=== PATIENT | female | born 1965 | race Caucasian/White ===

== ENCOUNTER 2025-01-10 01:52 | Emergency (ER) | payer MEDICAID, SELFPAY ==
[2025-01-10 01:53] VITALS: BP 154/93; PULSE 160; RESP 19; TEMP 36.6; O2SAT 99; BMI 34.0
[2025-01-10 02:16] LABS: Absolute Lymphocyte Count 3.08 X10^3/uL (0.83-4.51); Absolute Neutrophil Count 4.4 X10^3/uL (2.0-7.7); Basophil# 0.09 X10^3/uL; Eosinophil# 0.27 X10^3/uL; Hematocrit 37.1 % (37-47); Hemoglobin 12.5 g/dL (12.0-15.0); Lymphocyte # 3.08 X10^3/ul (0.83-4.51); Lymphocyte % 34.6 % (19-41); Mean Corp Hgb Conc 33.7 g/dL (32-36); Mean Corpuscular Hgb 31.8 pg (27.0-32.0); Mean Corpuscular Volume 94.4 fL (81-99); Mean Platelet Vol. 9.8 fl (6.2-12.0); Monocyte# 1.02 X10^3/uL; Monocyte% 11.4 % (0-10); NRBC Flagged by Analyzer 0 % (0-5); Neutrophil # 4.41 X10^3/uL (2.7-7.7); Neutrophil % 49.6 % (47-70); Platelet Count 445 K/mm3 (150-450); RBC Distribution Width CV 13.1 % (11.6-14.6); RBC Distribution Width SD 45.7 fl (35.1-43.9); Red Blood Count 3.93 M/mm3 (4.2-5.4); White Blood Count 8.9 K/mm3 (4.4-11.0)
[2025-01-10] MEDS: dilTIAZem 25 MG/5 ML Vial 20 MG IV BOLUS ×2 (02:16→03:16)
[2025-01-10] MEDS: 0.9% Normal Saline (1000mL) 1,000 ML 999 ML IV (02:16)
[2025-01-10 02:32] LABS: International Normalized Ratio 0.9; Prothrombin Time (Protime)PT. 12.7 SECONDS (11.7-14.9)
[2025-01-10 02:33] LABS: Partial Thromboplast Time 25.1 Seconds (24.1-36.2)
[2025-01-10 02:53] VITALS: BP 148/94; PULSE 126; RESP 18; O2SAT 98
[2025-01-10 03:02] LABS: Anion Gap 13 (5-15); BUN 11 mg/dL (4-19); BUN/Creat Ratio 13.4 RATIO (10-20); Calcium,Total 9.5 mg/dL (7.6-11.0); Carbon Dioxide 19.7 mmol/L (21.0-32.0); Chloride 106 mmol/L (98-108); EST Glomerular Filtration Rate 84 (>60); Estimated Creatinine Clearance 74.35 ml/min (50-250); Glucose 120 mg/dL (70-99); Magnesium 2.3 mg/dL (1.5-2.2); Potassium 3.9 mmol/L (3.3-5.1); Sodium Level 139 mmol/L (133-145)
[2025-01-10 03:27] VITALS: BP 116/80; PULSE 102; RESP 18; O2SAT 99
[2025-01-10] MEDS: Metoprolol Tartrate 25 MG Tablet PO (03:47)
[2025-01-10 04:00] VITALS: BP 115/76; PULSE 101; RESP 19; O2SAT 98
--- NOTE | 2025-01-10 04:27 | EX.ED.DYSGE1 ---
HPI History of Present Illness Chief Complaint: Palpitations Informant: patient Narrative Narrative: Patient is a 59-year-old female who reports a past medical history of coronary artery disease and hyperlipidemia. She states she had a heart cath a few weeks ago that was reportedly clean. She states she lives in [place] and is in town visiting her brother who has metastatic lung cancer. She states she went to bed feeling normal and then awoke from sleep with sensation of her heart racing. She states she does not have a history of an abnormal heart rhythm and with the persistent palpitations presents for evaluation. Patient does admit to drinking alcohol on average 3 times a week. She denies any history of illicit drug use or excessive stimulant use [facility] Medical History (Updated 01/10/25 @ 05:[address] Devante Shah, DO) Drinks alcohol CAD (coronary artery disease) Home Medications ?Medication ?Instructions ?Recorded ?Last Taken ?Type apixaban 5 mg tablet (Eliquis) 5 mg PO BID 30 days #60 tabs 01/10/25 Unknown Rx aspirin 81 mg capsule 81 mg PO DAILY 01/10/25 Unknown History metoprolol tartrate 25 mg tablet 25 mg PO BID 30 days #60 tabs 01/10/25 Unknown Rx nitroglycerin 0.4 mg sublingual 0.4 mg sublingual PRN PRN angina 01/10/25 Unknown History tablet (Nitrostat) rosuvastatin 20 mg tablet 20 mg PO DAILY 01/10/25 Unknown History Allergy/AdvReac Type Severity Reaction Status Date / Time latex AdvReac Rash Verified 01/10/25 01:54 Surgical History (Updated 01/10/25 @ 01:55 by Meg Patel) History of Social History (Updated 01/10/25 @ 02:07 by Meg Patel) Smoking Status: Current every day smoker tobacco type: cigarettes alcohol intake: current ROS ROS ED Constitutional Constitutional ED: Denies chills or fever(s) Eyes Eyes: Denies blurry vision or change in vision ENT ENT ED: Denies sore throat Cardiovascular Cardiovascular: Reports palpitations and racing heartbeat; Denies chest pain Respiratory/Chest Respiratory/Chest: Denies cough or dyspnea Gastrointestinal Gastrointestinal: Denies abdominal pain, diarrhea, nausea or vomiting Genitourinary Genitourinary ED: Denies dysuria Musculoskeletal Musculoskeletal: Denies back pain or myalgias Integumentary Denies rash Neurologic Neurologic: Denies headache(s) Hematologic/Lymphatic Hematologic/Lymphatic: Denies easy bleeding or easy bruising EXAM Physical Exam Const Vital Signs: 01/10/25 01:53 01/10/25 01:53 01/10/25 02:53 Temperature 98 F Temperature Source Temporal Pulse Rate 160 H 126 H Respiratory Rate 19 H 18 Respiratory Effort Normal Non-Labored Blood Pressure 154/93 H 148/94 H Blood Pressure Mean 113 112 Pulse Ox 99 98 Oxygen Delivery Method Room Air Room Air 01/10/25 03:27 01/10/25 04:00 01/10/25 04:31 Temperature 98.2 F Temperature Source Pulse Rate 102 H 101 H 100 Respiratory Rate 18 19 H 18 Respiratory Effort Blood Pressure 116/80 115/76 115/76 Blood Pressure Mean 92 89 89 Pulse Ox 99 98 97 Oxygen Delivery Method Room Air Room Air Positive well nourished and well developed General Appearance ED: well developed; Negative for pallor HEENT HEENT Narrative: Normocephalic atraumatic Eyes PERRL and EOMs intact bilaterally General Eye ED: Negative for scleral icterus Neck supple and no JVD Neck Narrative: No nuchal rigidity or meningeal signs Chest Wall palpation of chest normal Chest Narrative: No bony deformity or subcutaneous emphysema noted Resp normal respiratory effort and clear to auscultation bilaterally Cardio Rate: tachycardic and other Other Details: Irregularly irregular rhythm with tachycardic rate consistent with atrial fibrillation with rapid ventricular response GI normal to inspection, nondistended, normoactive bowel sounds, non-tender, non-distended and no masses Auscultation: normoactive bowel sounds Palpation: soft Extremity normal to inspection Extremity Narrative: No asymmetric edema no pitting edema negative Homans' sign bilaterally Neuro oriented x3, CN's II-XII intact bilaterally and no sensory deficits noted Sensorium / Orientation: alert Motor Exam: strength 5/5 throughout Psych mental status grossly normal Skin no rashes or lesions noted General Skin Exam: Negative for jaundice or pallor MDM MDM MDM Narrative Medical decision making narrative: Patient arrived to the ER hypertensive and in A-fib with RVR. She states she does not have a past medical history of this. In order to check for potential reversible causes of A-fib such as anemia acute kidney injury or electrolyte abnormality or thyroid disorder basic blood work was obtained. Labs revealed no clinically significant findings. After receiving Cardizem her heart rate improved to approximately 100. In order to ensure that the once the IV Cardizem was metabolized that her heart rate would stay within her normal range she was started on metoprolol tartrate. We did discuss potential cardioversion but the patient ultimately is unsure of how long she has been in atrial fibrillation and therefore there is a higher risk for potential stroke with the procedure and therefore we elected to not perform at this time and simply control her rate and put her on anticoagulation. As the patient is from [place] she states she will follow-up with her normal cardiology team when she returns home. At this time her rate is within her normal range she is not anticoagulated on Eliquis and will continue metoprolol to keep her heart rate under control and therefore she is safe for discharge and can follow-up as an outpatient when she returns home History & Record Review Discussion w/independent historian: Patient Lab Data Attestation: I reviewed the patient's lab results. Labs: Laboratory Results - last 24 hr 01/10/25 02:00 WBC 8.9 RBC 3.93 L Hgb 12.5 Hct 37.1 MCV 94.4 MCH 31.8 MCHC 33.7 RDW Std Deviation 45.7 H RDW Coeff of Ashok 13.1 Plt Count 445 MPV 9.8 Immature Gran % (Auto) 0.400 Neut % (Auto) 49.6 Lymph % (Auto) 34.6 [place] % (Auto) 11.4 H Eos % (Auto) 3.0 Baso % (Auto) 1.0 Absolute Neuts (auto) 4.4 Absolute Lymphs (auto) 3.08 Nucleated RBC % 0 PT 12.7 INR 0.9 APTT 25.1 Sodium 139 Potassium 3.9 Chloride 106 Carbon Dioxide 19.7 L Anion Gap 13 BUN 11 Creatinine 0.80 Estim Creat Clear Calc 74.35 Est GFR (MDRD) Non-Af 84 BUN/Creatinine Ratio 13.4 Glucose 120 H Calcium 9.5 Magnesium 2.3 H TSH 2.940 Discharge Plan Triage Chief Complaint: Palpitations ED Provider: Devante Shah Dx/Rx/DC Orders Clinical Impression: Atrial fibrillation with rapid ventricular response, Coronary artery disease, Hyperlipidemia Instructions: AFib Dc Prescriptions: New metoprolol tartrate 25 mg tablet 25 mg PO BID 30 Days Qty: 60 0RF Eliquis 5 mg tablet 5 mg PO BID 30 Days Qty: 60 0RF No Action aspirin 81 mg capsule 81 mg PO DAILY nitroglycerin [Nitrostat] 0.4 mg tablet, sublingual 0.4 mg sublingual PRN PRN (Reason: angina) rosuvastatin 20 mg tablet 20 mg PO DAILY Primary Care Provider: ADA SULLIVAN Referrals: ADA SULLIVAN [Other] Activity Restrictions/Additional Instructions: You are in an abnormal heart rhythm known as atrial fibrillation. This can lead to blood clot formation and increase your risk for stroke. Therefore take the Eliquis/blood thinner as directed to prevent this. Continue to take the metoprolol twice a day to keep your heart rate under 100. You may need to follow-up with cardiology when you return home to discuss potential cardioversion and further testing for the cause of your A-fib. If your symptoms worsen or not controlled with the prescribed medication please return to the ER for repeat evaluation Print Language: Nepali Disposition Disposition: Home, Self Care Discharge Date/Time: 01/10/25 04:48
[2025-01-10 04:31] VITALS: BP 115/76; PULSE 100; RESP 18; TEMP 36.8; O2SAT 97
[2025-01-10] MEDS: APIXABAN 5 MG TABLET PO (04:39)
== END 2025-01-10 04:48 | disposition home or self-care (01) ==
PROVIDERS: Emergency Provider Emergency Medicine; Visit Provider Emergency Medicine
DX: I48.91 Unspecified atrial fibrillation (principal); I25.10 Atherosclerotic heart disease of native coronary artery without angina pectoris; E78.5 Hyperlipidemia, unspecified; Z79.82 Long term (current) use of aspirin; F17.210 Nicotine dependence, cigarettes, uncomplicated
CPT/HCPCS: 80048; 83735; 84443; 85025; 85610; 85730; 93005; 96361; 96374; 96376; 99285